=== PATIENT | female | born 1970 | race Caucasian/White ===

== ENCOUNTER 2018-11-15 09:24 | Emergency (ER) | payer BC ==
[~2018-11-15] VITALS: Wt 76.3 kg
[~2018-11-15 09:24] MED LIST: FERR27TA; OSEL75CA23 PO; PREN1TAB49
[2018-11-15 09:26] VITALS: RESP 22
[2018-11-15] MEDS ORDERED: ALBUTEROL 0.083% (NEB) 2.5 MG/3 ML AMP HHN STA (10:16)
[2018-11-15] MEDS ORDERED: ACETAMINOPHEN 325 MG TAB PO ONE (10:30)
[2018-11-15] MEDS ORDERED: predniSONE 20 MG TAB PO ONE (10:30)
[2018-11-15] MEDS ORDERED: IBUP-1542 PO (11:38)
[2018-11-15] MEDS ORDERED: ALBU18HF INHALATION (11:38)
[2018-11-15] MEDS ORDERED: PRED20TA PO (11:38)
--- NOTE | 2018-11-15 11:41 | ERD ---
ER Documentation Chief Complaint Chief Complaint cough and congestion with headache and sore throat for a few days. HPI 48-year-old female presents with cough and body aches and bitemporal headache and sore throat for last 3 days. She has no measured fevers. Chest pain, abdominal pain, vomiting, additional symptoms. ROS All systems reviewed and are negative except as per history of present illness. Medications Home Meds Active Scripts Ibuprofen* (Motrin*) 600 Mg Tab, 600 MG PO Q6, #15 TAB Prov:MADAY BAZZI MD 11/15/18 Albuterol Sulfate* (Ventolin HFA*) 18 Gm Hfa.aer.ad, 2 PUFF INHALATION Q4H, #1 INHALER Prov:MADAY BAZZI MD 11/15/18 Prednisone* (Prednisone*) 20 Mg Tab, 40 MG PO DAILY for 4 Days, TAB Start November 16, 2018 Prov:MADAY BAZZI MD 11/15/18 Oseltamivir Phosphate* (Tamiflu*) 75 Mg Capsule, 75 MG PO BID for 5 Days, CAP Prov:DEAN FERNANDEZ 08/24/15 Reported Medications Ferrous Sulfate (Iron) 1 Tab Tablet 01/11/10 Vits W-Ca,Fe,Fa(<1MG) () 1 Tab Tablet 01/11/10 Allergies Allergies: Coded Allergies: No Known Drug Allergy (Verified Allergy, Unknown, 01/11/10) PMhx/Soc Medical and Surgical Hx: pt denies Medical Hx, pt denies Surgical Hx Hx Alcohol Use: No Hx Substance Use: No Hx Tobacco Use: No FmHx Family History: No diabetes, No coronary disease, No other Physical Exam Vitals Vital Signs Date Temp Pulse Resp B/P (MAP) Pulse Ox O2 O2 Flow FiO2 Time Delivery Rate 11/15/18 98.4 105 140/79 97 Room Air 12:32 (99) 11/15/18 106 22 98 21 10:43 11/15/18 98.8 113 22 149/89 97 09:26 (109) Physical Exam Const: No acute distress Head: Atraumatic Eyes: Normal Conjunctiva ENT: Normal External Ears, Nose and Mouth. TMs and oropharynx normal. Neck: Full range of motion. No meningismus. Resp: Clear to auscultation bilaterally mild forced wheeze without significant wheeze at rest no rales or retractions. Cardio: Regular rate and rhythm, no murmurs Abd: Soft, non tender, non distended. Normal bowel sounds Skin: No petechiae or rashes Back: No midline or flank tenderness Ext: No cyanosis, or edema Neur: Awake and alert Psych: Normal Mood and Affect Results 24 hrs Current Medications Medications Dose Sig/Leyla Start Time Status Last (Trade) Ordered Route PRN Stop Time Admin Dose Reason Admin Albuterol 5 mg ONCE STAT 11/15/18 DC 11/15/18 (Proventil HHN 10:16 10:42 0.083% (Neb)) 11/15/18 10:18 Prednisone 60 mg ONCE ONCE 11/15/18 DC 11/15/18 (Prednisone) PO 10:30 10:22 11/15/18 10:31 650 mg ONCE ONCE 11/15/18 DC 11/15/18 Acetaminophen PO 10:30 10:22 (Tylenol 11/15/18 10:31 Tab) Procedures/MDM Chest X-ray 1V Interpreted by me: Soft Tissue: No acute abnormalities Bones: No acute abnormalities Mediastinum/Cardiac Silhouette/Lungs: No acute abnormalities. Impression- normal 1 view chest x-ray Given albuterol treatment x1, prednisone 60 mg and after patient was in 0 symptoms mild wheeze for last 2 days but she has no signs of hypoxemia, rest distress, signs of pneumonia on exam. Will treat with a short course prednisone, Ventolin, primary care follow-up and return precautions. The patient was stable with no new complaints during the ER course. Clinically, there is no current evidence to suggest meningitis, sepsis, acute abdomen, pneumonia, stroke, acute coronary syndrome, pulmonary embolism, aortic dissection or any other emergent condition appearing to require further evaluation or hospitalization. Patient counseled regarding my diagnostic impression and care plan. Prior to discharge all questions answered. Pt agrees with treatment plan and understands strict return precautions. Pt is instructed to follow up with primary care provider within 24-48 hours. Precautionary instructions provided including instructions to return to the ER if not improving or for any worsening or changing symptoms or concerns. Departure Diagnosis: Primary Impression: Cough Condition: Stable Patient Instructions: Uri, Viral W/ Wheezing (Adult) Referrals: COLIN VALDERRAMA MD (PCP) Additional Instructions: X-ray read as normal. Likely viral illness should resolve in the next few days. Recheck for new or worsening symptoms with primary care doctor. MADAY BAZZI MD Nov 15, 2018 11:41
[2018-11-15 12:32] VITALS: BP 140/79; PULSE 105
== END 2018-11-15 12:35 | disposition home or self-care (01) ==
LOC: FTE 09:24
DX: R05 Cough (principal)
CPT/HCPCS: 71045; 94664; 99283; J7512; Z7610